=== PATIENT | female | born 1985 | race Caucasian/White ===

== ENCOUNTER → 2019-10-03 | Outpatient (CLI) | payer OTHER ==
[~2019-10-03] VITALS: Ht 157.5 cm; Wt 88.5 kg
[~2019-10-03] MED LIST: BUPROPION XL150 MG PO; COMPAZINE10 MG PO; COMPAZINE5 MG PO; DILAUDID8 MG PO; DULOXETINE HCL60 MG PO; FIORINAL/CODEIN30 M1 PO; IMITREX4 MG/0.5 M SUBQ; METOPROLOL SUCC25 M1 PO; NORET-ESTR-FE1 EACH PO; ONDANSETRON ODT8 MG PO; PROPRANOLOL HC160 MG PO; ZOFRAN ODT4 MG PO; ZOFRAN4 MG PO
--- NOTE | ~2019-10-03 | HPC ---
[facility] [address] [address] PAIN MANAGEMENT CONSULTATION Name: FLAVIA KELLOGG Room #: REG [facility] Justin.#: [id number] Admission: 10/03/19 Attend Phys: Onofre Villafana DO Discharge: Date of : 83 Report #: [id number] THIS REPORT FOR: cc: Michael Suarez Gregory DO Johnson,Onofre Diaz DO ~ CC: Michael Ring NP DATE OF SERVICE: 10/03/2019 CHIEF COMPLAINT: Left upper buttock and low back pain. HISTORY OF PRESENT ILLNESS: As you know, the patient is a 34-year-old female with longstanding history of left low back and upper buttock pain. The patient states on her intake form today that her pain began 07/13/2019. It does appear based on the referral to our clinic from Alina Ring, that the symptoms were present since 12/2017. The patient was seen by another pain service and received epidural injections under fluoroscopic guidance, which provided only transient improvement in symptoms lasting for no more than about an hour. She sought further evaluation through their pain clinic and advised there was nothing more to offer the patient. She was subsequently discharged. She followed up with [facility] where she saw Alina Ring on 06/12/2019 as a new patient. She indicated her symptoms began in the low back and left buttock area with some posterolateral thigh involvement. She was denying weakness. Pain tends to rise from a seated position and while standing as well as in the seated position. Pain was resolved with lying down. Walking did not seem to exacerbate symptoms. She was evaluated through their services, advised that her imaging study showed no concerning findings of the lumbar spine in fact, her lumbar spine imaging was essentially normal and advised to trial other treatment options. She was referred to our clinic to discuss treatment options, specifically to address this low back and left buttock symptoms. The patient indicates her pain is continuous and constant. She describes the pain when present as shooting, crushing, stabbing and burning. She places current pain score around 7/10 daily averaging anywhere from 6-9/10, worst, the pain has been is 10/10. The patient continues to describe pain as exacerbated with bending, sitting, twisting, crouching and walking, improves with lying down. She has been referred to our clinic to discuss interventional treatment options for low back and left buttock pain. PAST MEDICAL HISTORY: 1. Migraine headaches. 2. Depression. 3. Degenerative joint disease. [address] [address] PAIN MANAGEMENT CONSULTATION Name: FLAVIA KELLOGG Room #: REG [facility]#: [id number] Admission: 10/03/19 Attend Phys: Onofre Villafana DO Discharge: Date of : 83 Report #: [id number] 4. Reported osteoarthritis. 5. Eye trouble. PAST SURGICAL HISTORY: 1. Tonsillectomy. 2. Cholecystectomy. 3. Strabismus surgery. SOCIAL HISTORY: The patient is a former smoker. She quit in 2016. She denies IV or illicit drug use. Admits to an occasional alcohol beverage. She is employed in customer service. She is working, not receiving workmen's compensation nor is she trying to obtain disability. She is not in litigation in regards to pain. She is unaccompanied today. REVIEW OF SYSTEMS: Positive for weight gain, decrease in appetite, fatigue and weakness, frequent and recurrent headaches, eye disease, wearing corrective eyewear, chronic sinus problems with rhinitis, loss of appetite, nausea, vomiting, constipation, change in hair and nail texture, weakness, frequent and recurrent headaches, lightheadedness and dizziness, numbness and tingling sensations, nervousness, depression, insomnia, heat and cold intolerance. All other review of systems negative per 12-point review of systems other than those listed in history of present illness. Pain impact score of 55/70, severe interference of daily activities secondary to pain. ALLERGIES: AVELOX, LEVAQUIN, BIAXIN AND TORADOL. CURRENT MEDICATIONS: Melatonin 5 mg p.o. at bedtime, bupropion XL 150 mg once a day, propranolol 160 mg once a day, duloxetine 60 mg once a day, ondansetron 8 mg p.r.n., sumatriptan 4 mg p.r.n., Fioricet 1 tab p.r.n. q. 4 hours, oral contraceptive 1 tab per day. IMAGING: MRI of the lumbar spine obtained on 06/21/2018 normal. No central canal, no neural foraminal stenosis, no significant disk changes. PHYSICAL EXAMINATION: VITAL SIGNS: Blood pressure 122/71, pulse 89, respiratory rate 18 and unlabored. The patient is 97% on room air. Height 5 feet 2 inches tall, weight 195 pounds, BMI calculated 35.7. GENERAL: Well-developed, well-nourished, well-hydrated exogenously obese 34-year-old female appearing her stated age. She is in no acute distress, awake, alert and oriented x 3. Current pain score 7/10. HEENT: Normocephalic, atraumatic. There is noted disconjugate gaze. She is wearing corrective eyewear. NEUROLOGIC: Cranial nerves 2-12 grossly intact. Speech is fluent. LUNGS: Clear, no wheeze, rhonchi or rales. CARDIOVASCULAR: Regular. No appreciable gallop, no rub. [facility] [address] [place] [address] PAIN MANAGEMENT CONSULTATION Name: FLAVIA KELLOGG Room #: REG [facility].#: [id number] Admission: 10/03/19 Attend Phys: Onofre Villafana DO Discharge: Date of : 83 Report #: [id number] ABDOMEN: Soft, obese, normoactive bowel sounds. EXTREMITIES: Show no clubbing, no cyanosis, and no edema. MUSCULOSKELETAL: Lower extremity strength equal and symmetrical 5/5, intact to light touch from L1 through S2 dermatomes. Seated straight leg raising negative. Supine straight leg raising negative. Jaye test is negative. Modified Gaenslen's positive for some axial low back pain on the left side greater than right over the facet joints. Palpatory tenderness over the left SI joint. Deep palpation in area causes intensification of pain, negative right. Ankle clonus negative. Babinski's is negative. Gait appears mildly antalgic favoring left lower extremity due to pain over the SI joints. ASSESSMENT: 1. Left sacroiliac joint pain. 2. Chronic intractable pain. PLAN: 1. Based on today's physical exam and the history the patient has provided, the description the patient uses in regards to pain as well as the distribution of symptoms, likely source of the patient's pain is the left sacroiliac joint. I am pleased to advise the patient of the findings in her MRI lumbar spine are normal for her age and body habitus. There is no lateralizing feature consistent with the patient's symptoms. We discussed the lack of efficacy with epidural injections, which would make sense as she has no lumbar pathology. It does appear from the physical exam that she is suffering from left sacroiliac joint dysfunction. Deep palpation in area causes intensification of pain. It is not unusual for a young female to have SI joint dysfunction and can be initially evaluated as a lumbar radiculopathy given its unusual distribution. She does have upper buttock and posterolateral thigh pain consistent with an SI joint dysfunction. Originally believed to be lumbar radiculopathy, though with further evaluation and discussion of what exacerbates her symptoms and makes her symptoms better, I agree with the nurse practitioner, Jhonathan, that this appears to be left SI joint dysfunction based on physical exam and the lack of findings in the lumbar region. We discussed with the patient the following treatment options for SI joint dysfunction. 1. We discussed physical therapy, stretching exercises, core strengthening techniques and a concerted effort at weight loss. This in conjunction with SI joint manipulation to be done consistently could improve the patient's symptoms quite quickly and will be ultimately necessary to treat this long-term issue. We discussed medication management suggestions to the primary care team including nonsteroidal anti-inflammatories for analgesic benefit. There does not appear to be a need for any opioid medication or neuropathic medications given the distribution of symptoms and that the symptoms she is experiencing. We discussed intra-articular SI joint injection as a treatment option and ultimately fusion of the sacroiliac joint. After reviewing the risks and benefits of all proposed treatment options, the patient chose to begin with a [facility] [address] [place] [address] PAIN MANAGEMENT CONSULTATION Name: FLAVIA KELLOGG Room #: REG [facility]#: [id number] Admission: 10/03/19 Attend Phys: Onofre Villafana DO Discharge: Date of : 83 Report #: [id number] sacroiliac joint injection under fluoroscopic guidance. 2. The patient was advised that due to third democrat payer restrictions, authorization would have to be obtained before the patient could undergo a left SI joint injection. We will begin this process immediately. Once this authorization has been completed, we will have the patient to return to undergo the first in a series of SI joint injections on the left side to address sacroiliac joint pain. The patient can contact our clinic for progress of obtaining this authorization. Once it has been completed, we will schedule the patient back to undergo the procedure. 3. No medication changes made at today's visit. We recommend the patient to continue current medical therapy as prior prescribed. 4. We will see the patient back in followup visit once the authorization has been obtained to undergo left sacroiliac joint injection under fluoroscopic guidance. We wish to thank nurse practitioner, Alina Ring, for the opportunity to see the patient in consultation. We will keep you apprised of response to treatment as we address left sacroiliac joint pain. Again, we wish to thank you for the opportunity to see this patient in consultation. We will keep you apprised of her responses. By: [id number] Onofre Villafana DO /nt
[2019-10-03 14:55] VITALS: BP 122/71
--- NOTE | 2019-10-03 15:00 | NUR ---
Pain Clinic Assessment: 1. History of Osteoarthritis: NECK History of Rheumatoid Arthritis: Not Applicable 2. Height: 5 ft. 2 in. 157.5 cm. Weight: 195.0 lb. oz. 88.452 kg. Patient's BMI: 35.7 3. Vital Signs: BP: 122/71 Pulse: 89 Resp: 18 Temp: 02 Sat: 97 ECG Mon: 4. Pain Intensity: 7 5. Fall Risk: Dizziness: N Needs help standing or walking: N Fallen in the last 3 months: Y Fall risk comments: 6. Patient on Blood Thinner: None 7. History of Hypertension: N 8. Opioid Therapy greater than 6 weeks: N Opiate Contract Signed: 9. Risk Assessment Tool Provided: LOW-1 10. Functional Assessment Tool: 55/70 11. Recreational Drug Use: Past greater than 3 mos Drug Type: Tobacco Use: Former Smoker Tobacco Type: Amount or Packs/day: How Many Years: Alcohol Use: Yes Frequency: Weekly Quant: 3
== END ==
LOC: PAIN 07-24 06:55
PROVIDERS: ATTEND Anesthesiology Pain Medicine
DX: M53.3 Sacrococcygeal disorders, not elsewhere classified (principal); G89.29 Other chronic pain